=== PATIENT | male | born 1975 | race Caucasian/White ===

== ENCOUNTER 2017-09-06 11:20 | Emergency (ER) | payer OTHER ==
--- NOTE | 2017-09-06 11:56 | EDM.PDOC ---
ED HPI GENERAL MEDICAL PROBLEM - General Chief Complaint: Abdominal Pain Stated Complaint: [id number] PAIN IN UPPER LEFT SIDE UNDER RIBS Time Seen by Provider: 09/06/17 11:56 Source of Information: Reports: Patient, RN, RN Notes Reviewed History Limitations: Reports: No Limitations - History of Present Illness INITIAL COMMENTS - FREE TEXT/NARRATIVE: Patient presents to the ER with c/o pain in the left upper quadrant under the rib cage. He states he has had sinus drainage and bronchitis for the past few weeks. He did one round of antibiotics, and has currently been prescribed another round of abx (doxycycline) and steroids. He states the LUQ pain began today as he was driving from [employer]. Denies fever, chills, sob, cp, N/V/D. Onset: Today, Sudden Left Upper Abdomen Pain Score (Numeric/FACES): 4 - Related Data Allergies Allergy/AdvReac Type Severity Reaction Status Date / Time No Known Allergies Allergy Verified 09/06/17 11:41 Home Meds: Home Meds NK [No Known Home Meds] 0 mg PO DAILY 09/06/17 [History] Past Medical History - Past Surgical History Musculoskeletal Surgical History: Reports: Other (See Below) Other Musculoskeletal Surgeries/Procedures:: right ankle surgery Social & Family History - Tobacco Use Smoking Status *Q: Never Smoker - Caffeine Use Caffeine Use: Reports: Soda - Alcohol Use Days Per Week of Alcohol Use: 1 Number of Drinks Per Day: 3 Total Drinks Per Week: 3 - Recreational Drug Use Recreational Drug Use: No ED ROS GENERAL - Review of Systems Review Of Systems: ROS reveals no pertinent complaints other than HPI. ED EXAM, GI/ABD - Physical Exam Exam: See Below Exam Limited By: No Limitations General Appearance: Alert, WD/WN, No Apparent Distress Eyes: Bilateral: Normal Appearance Ears: Normal External Exam, Hearing Grossly Normal Nose: Normal Inspection Throat/Mouth: Normal Inspection, Normal Lips, Normal Teeth, Normal Gums, Normal Oropharynx, Normal Voice, No Airway Compromise Head: Atraumatic, Normocephalic Neck: Normal Inspection, Supple, Non-Tender, Full Range of Motion Respiratory/Chest: No Respiratory Distress, Lungs Clear, Normal Breath Sounds, No Accessory Muscle Use, Chest Non-Tender Cardiovascular: Normal Peripheral Pulses, Regular Rate, Rhythm, No Edema, No Gallop, No JVD, No Murmur, No Rub GI/Abdominal Exam: Normal Bowel Sounds, Soft, No Organomegaly, No Distention, No Abnormal Bruit, No Mass, Pelvis Stable, Tender (LUQ) (Male) Exam: Deferred Rectal (Males) Exam: Deferred Back Exam: Normal Inspection, Full Range of Motion Extremities: Normal Inspection, Normal Range of Motion, Non-Tender, No Pedal Edema, Normal Capillary Refill Neurological: Alert, Oriented, Normal Cognition, Normal Gait, No Motor/Sensory Deficits Psychiatric: Normal Affect, Normal Mood Skin Exam: Warm, Dry, Intact, Normal Color, No Rash Lymphatic: No Adenopathy EKG INTERPRETATION EKG Date: 09/06/17 Time: 13:56 Rhythm: NSR [place]: Normal Comparison: NA - No Prior EKG EKG Interpretation Comments: [id number] Course - Vital Signs Last Recorded V/S: Last Vital Signs Temp 97.2 F 09/06/17 13:42 Pulse 78 09/06/17 13:42 Resp 16 09/06/17 13:42 BP 132/80 09/06/17 13:42 Pulse Ox 99 09/06/17 13:42 - Orders/Labs/Meds Orders: Active Orders 24 hr Category Date Time Status EKG 12 Lead [EKG Documentation Completion] [RC] STAT Care 09/06/17 14:08 Active Peripheral IV Care [RC] . DIRECTED Care 09/06/17 13:44 Active Chest w Cont [CT] Urgent Exams 09/06/17 13:42 Taken Sodium Chloride 0.9% [Saline Flush] Med 09/06/17 13:44 Active 10 ml FLUSH ASDIRECTED PRN Peripheral IV Insertion Adult [OM.PC] Stat Oth 09/06/17 13:44 Ordered Medication Orders Sodium Chloride (Saline Flush) 10 ml FLUSH ASDIRECTED PRN PRN Reason: Keep Vein Open Labs: Laboratory Tests 09/06/17 09/06/17 09/06/17 Range/Units 12:06 12:06 12:06 WBC 10.3 H (5.0-10.0) 10^3/uL RBC 5.29 (4.6-6.2) 10^6/uL Hgb 17.4 (14.0-18.0) g/dL Hct 48.9 (40.0-54.0) % MCV 92.4 (80-100) fL MCH 32.9 (27.0-34.0) pg MCHC 35.6 H (33.0-35.0) g/dL Plt Count 210 (150-450) 10^3/uL Neut % (Auto) 84.8 H (42.2-75.2) % Lymph % (Auto) 8.0 L (20.5-50.1) % [place] % (Auto) 6.7 (2-8) % Eos % (Auto) 0.2 L (1.0-3.0) % Baso % (Auto) 0.3 (0.0-1.0) % D-Dimer, Quantitative 651 H (0-400) ng/mL Sodium 138 (135-145) mmol/L Potassium 4.0 (3.6-5.0) mmol/L Chloride 99 L (101-111) mmol/L Carbon Dioxide 27.0 (21.0-31.0) mmol/L Anion Gap 16.0 BUN 15 (7-18) mg/dL Creatinine 1.0 (0.6-1.3) mg/dL Est Cr Clr Drug Dosing 113.03 mL/min Estimated GFR (MDRD) > 60 BUN/Creatinine Ratio 15.00 Glucose 105 (74-105) mg/dL Calcium 9.4 (8.4-10.2) mg/dl Total Bilirubin 1.3 H (0.2-1.0) mg/dL AST 22 (10-42) IU/L ALT 22 (10-60) IU/L Alkaline Phosphatase 55 (42-121) IU/L Total Protein 7.8 (6.7-8.2) g/dl Albumin 4.9 (3.2-5.5) g/dl Globulin 2.9 Albumin/Globulin Ratio 1.69 Urine Color (YELLOW) Urine Appearance (CLEAR) Urine pH (5.0-9.0) Ur Specific [place] (1.005-1.030) Urine Protein (NEGATIVE) Urine Glucose (UA) (NEGATIVE) Urine Ketones (NEGATIVE) Urine Occult Blood (NEGATIVE) Urine Nitrite (NEGATIVE) Urine Bilirubin (NEGATIVE) Urine Urobilinogen (0.2-1.0) mg/dL Ur Leukocyte Esterase (NEGATIVE) Urine RBC /HPF Urine WBC (0-5/HPF) /HPF Ur Epithelial Cells /HPF Urine Bacteria (0-FEW/HPF) /HPF Urine Mucus /LPF Monoscreen Negative 09/06/17 Range/Units 12:58 WBC (5.0-10.0) 10^3/uL RBC (4.6-6.2) 10^6/uL Hgb (14.0-18.0) g/dL Hct (40.0-54.0) % MCV (80-100) fL MCH (27.0-34.0) pg MCHC (33.0-35.0) g/dL Plt Count (150-450) 10^3/uL Neut % (Auto) (42.2-75.2) % Lymph % (Auto) (20.5-50.1) % [place] % (Auto) (2-8) % Eos % (Auto) (1.0-3.0) % Baso % (Auto) (0.0-1.0) % D-Dimer, Quantitative (0-400) ng/mL Sodium (135-145) mmol/L Potassium (3.6-5.0) mmol/L Chloride (101-111) mmol/L Carbon Dioxide (21.0-31.0) mmol/L Anion Gap BUN (7-18) mg/dL Creatinine (0.6-1.3) mg/dL Est Cr Clr Drug Dosing mL/min Estimated GFR (MDRD) BUN/Creatinine Ratio Glucose (74-105) mg/dL Calcium (8.4-10.2) mg/dl Total Bilirubin (0.2-1.0) mg/dL AST (10-42) IU/L ALT (10-60) IU/L Alkaline Phosphatase (42-121) IU/L Total Protein (6.7-8.2) g/dl Albumin (3.2-5.5) g/dl Globulin Albumin/Globulin Ratio Urine Color Yellow (YELLOW) Urine Appearance Clear (CLEAR) Urine pH 5.5 (5.0-9.0) Ur Specific [place] 1.010 (1.005-1.030) Urine Protein Negative (NEGATIVE) Urine Glucose (UA) Negative (NEGATIVE) Urine Ketones Negative (NEGATIVE) Urine Occult Blood Negative (NEGATIVE) Urine Nitrite Negative (NEGATIVE) Urine Bilirubin Negative (NEGATIVE) Urine Urobilinogen 0.2 (0.2-1.0) mg/dL Ur Leukocyte Esterase Negative (NEGATIVE) Urine RBC Not seen /HPF Urine WBC Not seen (0-5/HPF) /HPF Ur Epithelial Cells Rare /HPF Urine Bacteria Not seen (0-FEW/HPF) /HPF Urine Mucus Not seen /LPF Monoscreen Meds: Medications Generic Name Dose Route Start Last Admin Trade Name Freq PRN Reason Stop Dose Admin Sodium Chloride 10 ml 09/06/17 13:44 Saline Flush FLUSH ASDIRECTED PRN Keep Vein Open Discontinued Medications Generic Name Dose Route Start Last Admin Trade Name Freq PRN Reason Stop Dose Admin Iopamidol 75 ml 09/06/17 13:44 09/06/17 14:22 Isovue-300 (61%) IVPUSH 09/06/17 13:45 Not Given ONETIME ONE Iopamidol 100 ml 09/06/17 14:21 09/06/17 14:21 Isovue-370 (76%) IVPUSH 09/06/17 14:22 100 ml ONETIME ONE Administration - Radiology Interpretation Free Text/Narrative:: CXR: effusion/LLBase CT chest/R/O PE: effusion LLbase//NO PE evident See rad report CT Results Date: 09/06/17 Departure - Departure Time of Disposition: 14:41 Disposition: Home, Self-Care 01 Condition: Good Clinical Impression: Pleurisy with effusion - Discharge Information Instructions: Pleurisy, [id number], Pleural Effusion Forms: ED Department Discharge Additional Instructions: Prednisone 60 mg orally once daily until 09/11, then use taper dose that you already have at home. Finish antibiotics that you have already been prescribed. Deep breathe and cough frequently. Incentive spirometry as directed. Follow up with your primary care facility on Tuesday 09/11. Drink plenty of water. - My Orders Last 24 Hours: My Active Orders 09/06/17 13:42 Chest w Cont [CT] Urgent 09/06/17 13:44 Peripheral IV Care [RC] . DIRECTED Sodium Chloride 0.9% [Saline Flush] 10 ml FLUSH ASDIRECTED PRN Peripheral IV Insertion Adult [OM.PC] Stat 09/06/17 14:08 EKG 12 Lead [EKG Documentation Completion] [RC] STAT - Assessment/Plan Last 24 Hours: My Active Orders 09/06/17 13:42 Chest w Cont [CT] Urgent 09/06/17 13:44 Peripheral IV Care [RC] . DIRECTED Sodium Chloride 0.9% [Saline Flush] 10 ml FLUSH ASDIRECTED PRN Peripheral IV Insertion Adult [OM.PC] Stat 09/06/17 14:08 EKG 12 Lead [EKG Documentation Completion] [RC] STAT
[2017-09-06 12:33] LABS: CHLORIDE,CL 99 mmol/L (101-111); SODIUM,NA 138 mmol/L (135-145)
[2017-09-06] MEDS ORDERED: Iopamidol 612 MG/ML 75 ML Bottle IVPUSH ONE (13:44)
[2017-09-06] MEDS ORDERED: Sodium Chloride 0.9% 10 ML Syringe FLUSH PRN (13:44)
--- NOTE | 2017-09-06 14:10 | CR ---
Clinical history: 41-year-old male clinical "bronchitis" and left upper quadrant pain. Interpretation: Blunting of left costophrenic sulcus suggesting small effusion or old inflammatory sc arring. (no previous films immediately available for comparison). Normal cardiac silhouette without cephalization of vascular flow or alveolar edema. No appreciable peribronchial "cuffing" or signs of focal lobar pneumonia. No atelectasis/collapse or pneumothorax. Ketty thorax unremarkable. CONCLUSION: Abnormal left costophrenic sulcus (see above). No heart failure or lobar pneumonia. Pulmo nary infarct?
[2017-09-06] MEDS ORDERED: Iopamidol 755 Mg/ML 100 ML Bottle IVPUSH ONE (14:21)
--- NOTE | 2017-09-06 15:11 | CT ---
CLINICAL HISTORY: 41-year-old 220 pound male with lower chest pain, abnormal blunting of the left cos tophrenic sulcus (chest x-ray) and elevated serum D dimer (651). Rule out pulmonary embolism or infar ct this patient recently treated for "bronchitis". SCAN TECHNIQUE: Volume acquisition of data from the chest (bony thorax, lungs and mediastinum) obtain ed during the intravenous administration 100 cc nonionic Isovue 370 contrast (5 cc/sec via injector) while the patient was lying supine on the Siemens multislice scanner [place], [place]. All data archived in the PACS system for storage, reformatting and study (lung/media stinal windows). INTERPRETATION: Abnormal but low probability pulmonary embolism or infarct. Probable left lower lobe pneumonia, resolving. 1. Small dependent pleural effusions blunting the left costophrenic sulcus. 2. Some asymmetric elevation left hemidiaphragm with underlying atelectasis or infiltrate posterior s egment left lower lobe. Clinical aspiration? Bronchiectasis? 3. No intraluminal filling defects or thrombus identified in the pulmonary artery circulation. No foc al lobar oligemia, other peripheral pleural-based wedge shaped infiltrate or infarct. Platelike atele ctasis right lung base. 4. No parenchymal lung nodule or mass lesion and no signs of hilar/mediastinal lymphadenopathy. 5. Normal cardiac silhouette. No pericardial effusion. No cephalization of vascular flow or signs of alveolar edema. 6. Normal caliber thoracic aorta. 7. Chronic hypertrophic arthritic changes spine.
--- NOTE | 2017-09-07 10:41 | EKG ---
09/06/2017- ISIDRA MCINTYRE - EKG done on a 41-year-old male, showing sinus rhythm with heart rate of 87 beats per minute, right axis deviation, normal intervals. [facility] /[id number]
== END 2017-09-06 15:09 | disposition home or self-care (01) ==
LOC: DL.ED 11:20
DX: J90 Pleural effusion, not elsewhere classified (principal)
CPT/HCPCS: 36415; 71020; 71260; 80053; 81001; 85025; 85379; 86308; 93005; 99284; Q9967